=== PATIENT | male | born 1995 | race Caucasian/White ===

== ENCOUNTER 2019-05-27 09:22 | Emergency (ER) | payer BC, SELFPAY ==
[2019-05-27 09:25] VITALS: BP 119/44; PULSE 61; RESP 16; TEMP 36; O2SAT 99
--- NOTE | 2019-05-27 09:34 | W.ED.GENAD ---
Discharge Plan Disposition Patient Disposition: HOME Condition: Improving Discharge Details Chief Complaint: EarProblem Clinical Impression: Bilateral impacted cerumen Primary Care Provider: Suresh Mckay ED Provider: Tone Pack Home Meds and New Rx's Prescriptions: New carbamide peroxide [Debrox] 6.5 % drops 5 drp OT DAILY 4 Days RF: 0 Discharge Instructions Instructions: Cerumen Impaction (ED) Additional Instructions: Please use carbamide peroxide drops daily for 4 days. This may color your pillowcase at night. Return for any acute concerns. Routine care with Dr. Mckay. Medical Decision Making 24-year-old male presents with insidious onset of bilateral ear sensation of fullness with decreased hearing. On exam he has bilateral cerumen impaction. Irrigated by nursing staff with production of large amounts of cerumen. Discussed with him use of Debrox solution at home. He is stable for discharge at this time. HPI General Mode of arrival: ambulatory. Date/Time Provider Initiated Documentation: 05/27/19 09:23. Limitations to Documentation: no limitations. Information obtained by: patient. History of Present Illness 24 year old M presents to the emergency department with the chief complaint of Bilateral ear pain, fullness, decreased hearing, described as mild, Quality is described as dull and constant, and is localized to the head, left and right. Patient reports no radiation. Patient started experiencing this hour(s) and it has been constant. No relieving factors improve symptom(s), No exacerbating factors reported . Patient notes no other symptoms.. Patient did receive the following treatments prior to arrival, none Related Data Home Medications Medication Instructions Recorded Confirmed carbamide peroxide [Debrox] 5 drp OT DAILY 4 Days ml 05/27/19 Previous Rx's Medication Instructions Recorded carbamide peroxide [Debrox] 5 drp OT DAILY 4 Days ml 05/27/19 Allergies Allergy/AdvReac Type Severity Reaction Status Date / Time iodine Allergy Intermediate Anaphylaxsi Unverified 05/27/19 09:28 s shellfish derived Allergy Unverified 05/27/19 09:28 General Stated Complaint: EarProblem AGAPITO: 5 Review of Systems Narrative: No recent illness. REPLACED BY [facility] Social History Smoking/Tobacco Use Status: Never Alcohol Intake: current Alcohol Intake frequency: a few times a month Drug use: Never Substance use type: does not use Do you feel safe at home: Yes Do you feel safe in your relationship?: Yes Exam Narrative Exam Narrative: GEN: awake, alert, oriented 3. Pleasant, well groomed, interactive. HEAD: Normocephalic, atraumatic ENT: Mucous membranes moist, oropharynx unremarkable, External ear exam unremarkable. Bilateral cerumen impaction. EYES: PERRL, EOMI NECK: Full ROM, no MARQUITA, no menigismus EXT: Full ROM, no edema, no rash Neuro: Grossly normal neurologic exam, conversant, interactive. Psych: Speech fluent, thoughts congruent, affect normal Course Vital Signs Vital signs: Vital Signs Temperature 36 C L 05/27/19 09:25 Pulse 61 05/27/19 09:25 Respiratory Rate 16 05/27/19 09:25 Blood Pressure 119/44 L 05/27/19 09:25 Pulse Oximetry 99 05/27/19 09:25 Temperature 36 C L 05/27/19 09:25 Temperature Source Skin 05/27/19 09:25 Pulse 61 05/27/19 09:25 Respiratory Rate 16 05/27/19 09:25 Respiratory Effort Non-Labored 05/27/19 09:29 Blood Pressure 119/44 L 05/27/19 09:25 Blood Pressure Position Sitting 05/27/19 09:25 Pulse Oximetry 99 05/27/19 09:25 Oxygen Delivery Method Room Air 05/27/19 09:25 Oxygen Flow Rate 0 05/27/19 09:25 Pain Level 1 05/27/19 09:25
== END 2019-05-27 09:50 | disposition home or self-care (01) ==
LOC: ER 10:40
PROVIDERS: Emergency Provider Emergency Medicine; PCP Pediatrics
DX: H61.23 Impacted cerumen, bilateral (principal)
CPT/HCPCS: 99283

== ENCOUNTER 2020-04-27 12:41 | Outpatient (REF) | payer BC, SELFPAY | END 2020-04-27 13:01 | LOC: LBN 12:41 | PROVIDERS: PCP Pediatrics; Visit Provider Physician Assistant | DX: S61.235A Puncture wound without foreign body of left ring finger without damage to nail, initial encounter (principal); L03.012 Cellulitis of left finger | CPT/HCPCS: 87070; 87205 ==